=== PATIENT | male | born 1965 | race Caucasian/White ===

== ENCOUNTER 2017-12-11 16:11 | Emergency (ER) | payer OTHER ==
[~2017-12-11] VITALS: Ht 177.8 cm; Wt 68.0 kg
[~2017-12-11 16:11] MED LIST: PERC7.5T13 PO; TAMS0.4C67 PO; TAPA10TA2 PO
[2017-12-11 16:22] VITALS: BP 155/88; PULSE 87; RESP 18; TEMP 97.8; O2SAT 98
[2017-12-11 16:43] VITALS: BP 125/78; PULSE 79; RESP 16; TEMP 97.8; O2SAT 98
[2017-12-11] MEDS ORDERED: SODIUM CHLOR 0.9% 1000 ML INJ 1,000 ML IV SCH (17:15)
[2017-12-11] MEDS ORDERED: SODIUM CHLORIDE 0.9% FLUSH 10 ML FLUSH IVF PRN (17:15)
[2017-12-11] MEDS ORDERED: ONDANSETRON HCL 4 MG/2 ML VIAL IV PUSH ONE (17:15)
[2017-12-11] MEDS ORDERED: MORPHINE SULFATE 4 MG/ML INJ IV PUSH ONE (17:15)
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
[2017-12-11 17:47] VITALS: RESP 16; O2SAT 98
[2017-12-11 17:47] LABS: AUTOMATED NEUTROPHIL # 4.3 TH/MM3 (1.8-7.7); BASOPHIL % 0.7 % (0.0-2.0); EOSINOPHIL # 0.1 TH/MM3 (0-0.4); EOSINOPHIL % 1.6 % (0.0-4.0); HEMATOCRIT 36.5 % (39.0-51.0); HEMOGLOBIN 12.2 GM/DL (13.0-17.0); LYMPHOCYTE # 1.4 TH/MM3 (1.0-4.8); MEAN CELL VOLUME 97.9 FL (80.0-100.0); MEAN CORPUSCULAR HEMOGLOBIN 32.8 PG (27.0-34.0); MEAN CORPUSCULAR HGB CONC 33.5 % (32.0-36.0); MEAN PLATELET VOLUME 7.6 FL (7.0-11.0); MONO % 9.8 % (0.0-8.0); MONOCYTE # 0.6 TH/MM3 (0-0.9); NEUT % 65.9 % (16.0-70.0); PLATELET COUNT 202 TH/MM3 (150-450); RED BLOOD COUNT 3.72 MIL/MM3 (4.50-5.90); RED CELL DISTRIBUTION WIDTH 11.5 % (11.6-17.2); WHITE BLOOD COUNT 6.4 TH/MM3 (4.0-11.0)
[2017-12-11 17:58] LABS: BICARBONATE 23.4 MEQ/L (21.0-32.0); BLOOD UREA NITROGEN 26 MG/DL (7-18); CHLORIDE 113 MEQ/L (98-107); CREATININE 0.74 MG/DL (0.60-1.30); GLOMERULAR FILTRATION RATE 112 ML/MIN (>89); GLUCOSE,RANDOM 102 MG/DL (74-106); SODIUM (NA) 144 MEQ/L (136-145)
[2017-12-11 18:01] LABS: PROTHROMBIN TIME - PATIENT 10.5 SEC (9.8-11.6)
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
[2017-12-11] MEDS ORDERED: IOHEXOL 350 MG/ML 10 ML VIAL (for RAD DIAG) IVCONTRAST ONE (18:43)
[2017-12-11] MEDS ORDERED: POTASSIUM CHLORIDE 20 MEQ CONTROLLED RELEASE TAB PO ONE (18:45)
[2017-12-11 19:19] VITALS: BP 143/98; PULSE 64; RESP 16; TEMP 97.7; O2SAT 99
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
[2017-12-11] MEDS ORDERED: IBUP-232 PO (19:50)
[2017-12-11] MEDS ORDERED: CYCL10TA PO (19:50)
== END 2017-12-11 20:17 | disposition home or self-care (01) ==
LOC: PHED 16:11
DX: M54.9 Dorsalgia, unspecified (principal); M25.511 Pain in right shoulder; M25.512 Pain in left shoulder; N20.0 Calculus of kidney; E05.00 Thyrotoxicosis with diffuse goiter without thyrotoxic crisis or storm; F14.90 Cocaine use, unspecified, uncomplicated; F15.90 Other stimulant use, unspecified, uncomplicated; F12.90 Cannabis use, unspecified, uncomplicated; V49.9XXA Car occupant (driver) (passenger) injured in unspecified traffic accident, initial encounter; Z87.442 Personal history of urinary calculi; Z72.0 Tobacco use; Z88.0 Allergy status to penicillin
CPT/HCPCS: 70450; 71045; 71260; 72125; 74177; 80048; 80307; 85025; 85610; 85730; 86850; 86900; 86901; 96361; 96374; 96375; 99285; J2270; J2405; J7030; Q9967